=== PATIENT | male | born 1990 | race Hispanic/Latino ===

== ENCOUNTER 2016-09-06 19:39 | Emergency (ER) | payer BC, OTHER ==
[2016-09-06 20:00] VITALS: BP 149/94; PULSE 101; RESP 18; TEMP 97.9; O2SAT 98
[2016-09-06] MEDS ORDERED: Sodium Chloride 0.9% 1,000 ML IV STA (20:22)
--- NOTE | 2016-09-06 20:24 | ED PDOC ---
HPI: Male Pain Time Seen by Provider: 09/06/16 20:15 Chief Complaint (Nursing): Male Genitourinary Chief Complaint (Provider): flank pain History Per: Patient Additional Complaint(s): pt c/o R flank pain radiating to R groin w/ associated hematuria x 2h. denies associated fever, cp, sob, abd pain, n/v/d, testicle pain, rashes. Past Medical History Reviewed: Historical Data, Nursing Documentation, Vital Signs Vital Signs: Last Vital Signs Temp 97.9 F 09/06/16 19:57 Pulse 101 H 09/06/16 19:57 Resp 18 09/06/16 19:57 BP 149/94 H 09/06/16 19:57 Pulse Ox 98 09/06/16 19:57 - Medical History PMH: No Chronic Diseases - Family History Family History: States: No Known Family Hx - Social History Current smoker - smoking cessation education provided: No Alcohol: None Drugs: Denies - Home Medications Home Medications: Ambulatory Orders Medication Instructions Recorded Cefuroxime Axetil [Cefuroxime] 500 mg PO BID #14 tablet 09/06/16 Tamsulosin [Flomax] 0.4 mg PO DAILY #20 cap 09/06/16 oxyCODONE/Acetaminophen [Percocet 1 ea PO Q6 #10 tab 09/06/16 5/325 mg Tab] - Allergies Allergies/Adverse Reactions: Allergies Allergy/AdvReac Type Severity Reaction Status Date / Time No Known Allergies Allergy Verified 09/06/16 19:56 Review of Systems ROS Statement: Except As Marked, All Systems Reviewed And Found Negative Gastrointestinal: Positive for: Abdominal Pain Genitourinary Male: Positive for: Hematuria Musculoskeletal: Positive for: Back Pain Physical Exam - Reviewed Nursing Documentation Reviewed: Yes Vital Signs Reviewed: Yes - Physical Exam Appears: Positive for: Non-toxic, Uncomfortable Skin: Positive for: Normal Color, Warm, DRY Cardiovascular/Chest: Positive for: Regular Rate, Rhythm Respiratory: Positive for: CNT, Normal Breath Sounds Gastrointestinal/Abdominal: Positive for: Normal Exam, Bowel Sounds, Soft. Negative for: Tenderness Back: Positive for: R CVA Tenderness. Negative for: L CVA Tenderness Extremity: Positive for: Normal ROM. Negative for: Tenderness Neurologic/Psych: Positive for: Alert, Oriented. Negative for: Motor/Sensory Deficits - Laboratory Results Result Diagrams: 09/06/16 20:32 09/06/16 21:45 - ECG O2 Sat by Pulse Oximetry: 98 Medical Decision Making Medical Decision Making: cbc, basic normal. urine bloody. ct shows 4.8mm obstructing stone distal R ureter. spoke with Dr. Gloria. pt can have rocephin in ED and ceftin Rx. to f/u in office. pt argrees to plan. Disposition - Clinical Impression Clinical Impression: Renal calculi - Patient ED Disposition Is Patient to be Admitted: No - Disposition Referrals: Dane Gloria MD [Staff Provider] - Disposition: Routine/Home Disposition Time: 23:25 Condition: IMPROVED Prescriptions: Cefuroxime Axetil [Cefuroxime] 500 mg PO BID #14 tablet Tamsulosin [Flomax] 0.4 mg PO DAILY #20 cap oxyCODONE/Acetaminophen [Percocet 5/325 mg Tab] 1 ea PO Q6 #10 tab Instructions: Kidney Stones (ED) Forms: [facility] ED School/Work Excuse
[2016-09-06 20:42] LABS: BASO # 0.1 K/uL (0.0-0.2); BASO % 0.6 % (0.0-2.0); EOS # 0.2 K/uL (0.0-0.7); EOS % 2.4 % (0.0-4.0); HEMATOCRIT 45.2 % (35.0-51.0); LYMPH # 2.9 K/uL (1.0-4.3); LYMPH % 30.2 % (20.0-40.0); MEAN CELL VOLUME 88.4 fl (80.0-94.0); MEAN CORPUSCULAR HEMOGLOBIN 29.8 pg (27.0-31.0); MEAN CORPUSCULAR HGB CONC 33.7 g/dL (33.0-37.0); MEAN PLATELET VOLUME 7.7 fl (7.2-11.7); MONO # 0.6 K/uL (0.0-0.8); MONO % 6.1 % (0.0-10.0); NEUT # 5.7 K/uL (1.8-7.0); NEUT % 60.7 % (50.0-75.0); NRBC % 0.1 % (0.0-0.0); RED CELL DISTRIBUTION WIDTH 12.8 % (11.5-14.5); WHITE BLOOD COUNT 9.5 K/uL (4.8-10.8)
[2016-09-06 20:57] LABS: BLOOD UREA NITROGEN 20 mg/dl (9-20); CARBON DIOXIDE 19 mmol/L (22-30); CHLORIDE 100 mmol/L (98-107); GFR AFRICAN-AMERICAN > 60; GLUCOSE,RANDOM 113 mg/dL (75-110); SODIUM 143 mmol/l (132-148)
[2016-09-06 21:02] LABS: CALCIUM < 1.0 mg/dL (8.4-10.2); POTASSIUM > 14.0 MMOL/L (3.6-5.0)
--- NOTE | 2016-09-06 21:23 | CT ---
EXAM: CT Abdomen and Pelvis Without Intravenous Contrast CLINICAL HISTORY: 26 years old, male; Pain; Abdominal pain; Flank; Right lower quadrant (rlq); Additional info: R flank pain radiating to the right groin with hematuria for 2 hours. Gender: male TECHNIQUE: Axial computed tomography images of the abdomen and pelvis without intravenous contrast. This CT exam was performed using one or more of the following dose reduction techniques: automated exposure control, adjustment of the mA and/or kV according to patient size, and/or use of iterative reconstruction technique. Coronal and sagittal reformatted images were created and reviewed. EXAM DATE/TIME: 09/06/2016 8:17 PM COMPARISON: There are no prior studies for comparison. FINDINGS: Lower thorax: heart size is normal. There is minimal atelectasis at the lung bases ABDOMEN: Liver: unremarkable Gallbladder and bile ducts: unremarkable Pancreas: There is mild fatty infiltration of the pancreas. Spleen: unremarkable Adrenals: unremarkable Kidneys and ureters: There are bilateral nonobstructing renal stones. There is a 9.5 mm right lower pole renal stone. There is a 5.3 mm right lower pole renal stone.There are multiple nonobstructing left renal stones. Largest left stone measures approximately 4.1 mm. There is obstructive uropathy on the right. There is a 4.8 mm right ureteral stone at the S2 segmental level. Ureter distal to this stone is unremarkable. Left kidney and ureter are otherwise unremarkable. Stomach and bowel: Stomach is distended. Rotation is normal. There is no obstruction. Terminal ileum is unremarkable. There is a small amount of radiopaque material in normal caliber appendix. There is mild fatty infiltration of the colon wall. Appendix: See above. PELVIS: Bladder: unremarkable Reproductive: Seminal vesicles and prostate are unremarkable. ABDOMEN and PELVIS: Intraperitoneal space: There is no free air or free fluid. Bones/joints: There are no acute osseous abnormalities. There is minimal spondylosis Soft tissues: There is a small fat-containing umbilical hernia. Vasculature: Vascular structures are unremarkable. Lymph nodes: There is no pathologic adenopathy. IMPRESSION: 4.8 mm obstructing distal right ureteral stone; bilateral nonobstructing renal stones as described above Additional findings as described above.
[2016-09-06 22:21] LABS: BLOOD UREA NITROGEN 20 mg/dl (9-20); CALCIUM 10.1 mg/dL (8.4-10.2); CARBON DIOXIDE 29 mmol/L (22-30); CHLORIDE 102 mmol/L (98-107); GFR AFRICAN-AMERICAN > 60; GLUCOSE,RANDOM 98 mg/dL (75-110); POTASSIUM 4.1 MMOL/L (3.6-5.0); SODIUM 144 mmol/l (132-148)
[2016-09-06] MEDS ORDERED: cefTRIAXone (Rocephin) 1 gm Inj ONE (23:09)
== END 2016-09-06 23:58 | disposition home or self-care (01) ==
LOC: H.ER 19:39
DX: N20.0 Calculus of kidney (principal); R10.9 Unspecified abdominal pain; R31.9 Hematuria, unspecified

== ENCOUNTER 2016-09-09 00:41 | Emergency (ER) | payer OTHER ==
[2016-09-09 00:50] VITALS: RESP 16
--- NOTE | 2016-09-09 01:07 | ED PDOC ---
HPI: Abdomen Time Seen by Provider: 09/09/16 00:52 Chief Complaint (Nursing): Male Genitourinary Chief Complaint (Provider): flank pain History Per: Patient History/Exam Limitations: no limitations Onset/Duration Of Symptoms: Days (3) Pain Scale Rating Of: 10 Location Of Pain/Discomfort: Other (right flank) Quality Of Discomfort: "Pain" Additional History Per: Patient Additional Complaint(s): 26 y/o male presents with right flank pain x 10 hours. Patient was here for same 3 days ago, diagnosed with kidney stone and discharged with Percocet, Flomax, and Ceftin. Patient states he followed up with Urologist Dr. Gloria Wednesday, had KUB and was told he will likely pass stone within one week. Patient states pain was controlled then, but the next day pain became intensified, no improvement with percocet. Denies fever, nausea/vomiting, changes in bowel movements, hematuria, dysuria. Past Medical History Reviewed: Historical Data, Nursing Documentation, Vital Signs Vital Signs: Last Vital Signs Temp 98.8 F 09/09/16 03:53 Pulse 73 09/09/16 03:53 Resp 16 09/09/16 00:47 BP 126/76 09/09/16 03:53 Pulse Ox 98 09/09/16 03:53 - Medical History PMH: Kidney Stones - Surgical History Surgical History: No Surg Hx - Family History Family History: States: Unknown Family Hx - Home Medications Home Medications: Ambulatory Orders Medication Instructions Recorded Cefuroxime Axetil [Cefuroxime] 500 mg PO BID #14 tablet 09/06/16 Tamsulosin [Flomax] 0.4 mg PO DAILY #20 cap 09/06/16 oxyCODONE/Acetaminophen [Percocet 1 ea PO Q6 #10 tab 09/06/16 5/325 mg Tab] Ibuprofen [Motrin Tab] 1 tab PO Q6 PRN #20 tab 09/09/16 oxyCODONE/Acetaminophen [Percocet 1 ea PO Q6 PRN #10 tab 09/09/16 5/325 mg Tab] - Allergies Allergies/Adverse Reactions: Allergies Allergy/AdvReac Type Severity Reaction Status Date / Time No Known Allergies Allergy Verified 09/09/16 00:47 Review of Systems ROS Statement: Except As Marked, All Systems Reviewed And Found Negative Gastrointestinal: Positive for: Abdominal Pain Physical Exam - Reviewed Nursing Documentation Reviewed: Yes Vital Signs Reviewed: Yes - Physical Exam Appears: Positive for: Well, Non-toxic, No Acute Distress Head Exam: Positive for: ATRAUMATIC, NORMAL INSPECTION, NORMOCEPHALIC Skin: Positive for: Normal Color Cardiovascular/Chest: Positive for: Regular Rate, Rhythm Respiratory: Positive for: Normal Breath Sounds Gastrointestinal/Abdominal: Positive for: Bowel Sounds, Soft, Tenderness (right flank, right lower quadrant) Back: Negative for: L CVA Tenderness, R CVA Tenderness Extremity: Positive for: Normal ROM Neurologic/Psych: Positive for: Alert, Oriented - Laboratory Results Result Diagrams: 09/09/16 01:15 09/09/16 01:15 - ECG O2 Sat by Pulse Oximetry: 99 - Progress ED Course And Treament: labs, IV fluids, IV toradol On re-eval, patient states pain improved, now 4/10. Patient and mother are requesting another CT scan. EXAM: CT Abdomen and Pelvis Without Intravenous Contrast CLINICAL HISTORY: 26 years old, male; Pain; Abdominal pain; Flank; Right; Additional info: Right flank pain, h/o ureteral stone TECHNIQUE: Axial computed tomography images of the abdomen and pelvis without intravenous contrast. This CT exam was performed using one or more of the following dose reduction techniques: automated exposure control, adjustment of the mA and/or kV according to patient size, and/ or use of iterative reconstruction technique. Coronal and sagittal reformatted images were created and reviewed. COMPARISON: CT - ABD PELVIS W/O PO OR IV CONT 09/06/2016 8:36:11 PM FINDINGS: Lower thorax: There is minimal bibasilar atelectasis. ABDOMEN: Liver: There are no focal liver lesions present. Gallbladder and bile ducts: The gallbladder is contracted but otherwise normal. No calcified stones. No ductal dilation. Pancreas: Pancreas is slightly fatty replaced. No ductal dilation. Spleen: Spleen is enlarged measuring 14.3 CM anteroposterior. Adrenals: The adrenal glands are normal. Kidneys and ureters: Right kidney demonstrates mild hydronephrosis and hydroureter to the level of the upper pelvis where there is an obstructing 4-5 mm calculus on series 2, image 69. Both kidneys demonstrate multiple nonobstructing renal calculi. Stomach and bowel: The stomach is normal. There is mild colonic constipation. There is no evidence of intestinal obstruction. No mucosal thickening. Appendix: A normal appendix is identified. PELVIS: Bladder: Bladder is decompressed. No stones. Reproductive: The prostate gland and seminal vesicles are normal. ABDOMEN and PELVIS: Intraperitoneal space: There is no evidence of free intraperitoneal fluid. There is no free intraperitoneal air. Bones/joints: No acute fracture. No dislocation. Soft tissues: Unremarkable. Vasculature: The aorta is normal. No abdominal aortic aneurysm. Lymph nodes: There is no evidence of lymphadenopathy. IMPRESSION: Right kidney demonstrates mild hydronephrosis and hydroureter to the level of the upper pelvis where there is an obstructing 4-5 mm calculus on series 2, image 69. Thank you for allowing us to participate in the care of your patient. Patient/mother concerned about being discharged because pain may return. Patient states he has not been taking Ibuprofen with Percocet because he was not instructed to do so. Dr. Stout at bedside, explained to patient importance of ibuprofen with Percocet to be used for breakthrough pain. Patient was offered admission for pain control, but states he would like to try outpatient ibuprofen rx first. Patient is requesting another Percocet rx as he finished his. Due to diagnosis of obstructing renal stone with continued pain, patient will require second Percocet rx. Patient was given rx for ibuprofen and percocet. Patient was advised Percocet is only to be taken for severe pain; educated on potential addiction/dependence/overdose. Patient advised to follow up with Dr. Gloria as previously discussed. Return to ED for worsening/concerning symptoms. Disposition - Clinical Impression Clinical Impression: Renal calculi - Patient ED Disposition Is Patient to be Admitted: No Counseled Patient/Family Regarding: Studies Performed, Diagnosis, Need For Followup, Rx Given - Disposition Disposition: Routine/Home Disposition Time: 03:42 Condition: IMPROVED Prescriptions: Ibuprofen [Motrin Tab] 1 tab PO Q6 PRN #20 tab PRN Reason: Pain, Moderate (4-7) oxyCODONE/Acetaminophen [Percocet 5/325 mg Tab] 1 ea PO Q6 PRN #10 tab PRN Reason: Pain, Severe (8-10) Instructions: Kidney Stones (ED), Renal Colic (ED)
[2016-09-09] MEDS: Sodium Chloride 0.9% 1,000 ML IV STA (01:11)
[2016-09-09 01:21] LABS: RBC URINE 30 /hpf (0-3); URINE BACTERIA RARE (<OCC); URINE BILIRUBIN NEGATIVE (NEGATIVE); URINE BLOOD MODERATE (NEGATIVE); URINE COLOR STRAW (YELLOW); URINE GLUCOSE (UA) NEG (Normal); URINE KETONE NEGATIVE (NEGATIVE); URINE LEUKOCYTE ESTERASE NEG Leu/uL (Negative); URINE PROTEIN NEGATIVE (NEGATIVE); URINE UROBILINOGEN 0.2-1.0 mg/dL (0.2-1.0); WBC URINE < 1 /hpf (0-5)
[2016-09-09 01:26] LABS: BASO # 0.1 K/uL (0.0-0.2); BASO % 0.9 % (0.0-2.0); EOS # 0.3 K/uL (0.0-0.7); EOS % 3.2 % (0.0-4.0); HEMATOCRIT 41.4 % (35.0-51.0); LYMPH % 33.5 % (20.0-40.0); MEAN CELL VOLUME 86.8 fl (80.0-94.0); MEAN CORPUSCULAR HGB CONC 34.6 g/dL (33.0-37.0); MEAN PLATELET VOLUME 7.7 fl (7.2-11.7); MONO # 0.6 K/uL (0.0-0.8); MONO % 7.1 % (0.0-10.0); NEUT # 4.9 K/uL (1.8-7.0); NEUT % 55.3 % (50.0-75.0); RED CELL DISTRIBUTION WIDTH 12.8 % (11.5-14.5); WHITE BLOOD COUNT 8.8 K/uL (4.8-10.8)
[2016-09-09 01:34] LABS: ALB/GLOB RATIO 1.3 (1.0-2.1); ALKALINE PHOSPHATASE 66 U/L (38-126); ALT/SGPT 28 U/L (21-72); AST/SGOT 24 U/L (17-59); BILIRUBIN,TOTAL 0.7 mg/dl (0.2-1.3); BLOOD UREA NITROGEN 12 mg/dl (9-20); CALCIUM 9.5 mg/dL (8.4-10.2); CARBON DIOXIDE 27 mmol/L (22-30); CHLORIDE 101 mmol/L (98-107); GFR AFRICAN-AMERICAN > 60; GLUCOSE,RANDOM 100 mg/dL (75-110); POTASSIUM 3.8 MMOL/L (3.6-5.0); SODIUM 142 mmol/l (132-148); TOTAL PROTEIN 7.4 G/DL (6.3-8.2)
[2016-09-09 03:53] VITALS: BP 126/76; PULSE 73; TEMP 98.8
[2016-09-09 04:13] VITALS: O2SAT 99
--- NOTE | 2016-09-09 10:11 | CT ---
PROCEDURE: CT Abdomen and Pelvis without intravenous contrast HISTORY: right flank pain, h/o ureteral stone COMPARISON: None. TECHNIQUE: Without contrast.. Contrast Dose: Radiation dose: Total exam DLP = 1096 mGy-cm. This CT exam was performed using one or more of the following dose reduction techniques: Automated exposure control, adjustment of the mA and/or kV according to patient size, and/or use of iterative reconstruction technique. FINDINGS: LOWER THORAX: Unremarkable. LIVER: Unremarkable. No gross lesion or ductal dilatation. GALLBLADDER AND BILE DUCTS: Unremarkable. PANCREAS: Unremarkable. No gross lesion or ductal dilatation. SPLEEN: Unremarkable. ADRENALS: Unremarkable. No mass. KIDNEYS AND URETERS: Bilateral nonobstructive nephrolithiasis. Right hydronephrosis and hydroureter with an obstructing 4 millimeter mid ureteral calculus. VASCULATURE: Unremarkable. No aortic aneurysm. BOWEL: Unremarkable. No obstruction. No gross mural thickening. APPENDIX: Unremarkable. Normal appendix. PERITONEUM: Unremarkable. No free fluid. No free air. LYMPH NODES: Unremarkable. No enlarged lymph nodes. BLADDER: Unremarkable. REPRODUCTIVE: Unremarkable. BONES: No acute fracture. OTHER FINDINGS: None. IMPRESSION: Bilateral nonobstructive nephrolithiasis. Right hydronephrosis and hydroureter with an obstructing 4 millimeter mid ureteral calculus.
== END 2016-09-09 03:55 | disposition home or self-care (01) ==
LOC: H.ER 00:41
DX: N20.0 Calculus of kidney (principal); R10.9 Unspecified abdominal pain; N13.2 Hydronephrosis with renal and ureteral calculous obstruction

== ENCOUNTER 2016-09-11 00:09 | Inpatient (IN) | payer OTHER ==
--- NOTE | 2016-09-11 00:47 | ED PDOC ---
HPI: Back Time Seen by Provider: 09/11/16 00:20 Chief Complaint (Nursing): Fever Chief Complaint (Provider): back pain/fever History Per: Patient (26 y/o recent ED visit for right side flank pain and diagnosis of 4mm obstructing stone (09/09/2016). Seen by Dr. Claire and placed on ceftin. Advised to come to ED for fever. Fever noted today. Denies any vomiting. Motrin at 6pm. Ceftin at 10pm. NO prior surgeries.) Past Medical History Reviewed: Historical Data, Nursing Documentation, Vital Signs Vital Signs: Last Vital Signs Temp 102 F H 09/11/16 00:24 Pulse 154 H 09/11/16 00:24 Resp 17 09/11/16 00:24 BP 115/70 09/11/16 00:24 Pulse Ox 97 09/11/16 00:24 - Medical History PMH: Kidney Stones - Family History Family History: States: Unknown Family Hx - Home Medications Home Medications: Ambulatory Orders Medication Instructions Recorded Cefuroxime Axetil [Cefuroxime] 500 mg PO BID #14 tablet 09/06/16 Tamsulosin [Flomax] 0.4 mg PO DAILY #20 cap 09/06/16 Ibuprofen [Motrin Tab] 1 tab PO Q6 PRN #20 tab 09/09/16 oxyCODONE/Acetaminophen [Percocet 1 ea PO Q6 PRN #10 tab 09/09/16 5/325 mg Tab] - Allergies Allergies/Adverse Reactions: Allergies Allergy/AdvReac Type Severity Reaction Status Date / Time No Known Allergies Allergy Verified 09/11/16 00:23 Review of Systems ROS Statement: Except As Marked, All Systems Reviewed And Found Negative Constitutional: Positive for: Fever Musculoskeletal: Positive for: Back Pain Physical Exam - Reviewed Nursing Documentation Reviewed: Yes Vital Signs Reviewed: Yes - Physical Exam Appears: Positive for: Well, Non-toxic, No Acute Distress Head Exam: Positive for: ATRAUMATIC, NORMAL INSPECTION, NORMOCEPHALIC Skin: Positive for: Normal Color, Warm, DRY Eye Exam: Positive for: EOMI, Normal appearance, PERRL ENT: Positive for: Normal ENT Inspection Neck: Positive for: Normal, Painless ROM Cardiovascular/Chest: Positive for: Regular Rate, Rhythm Respiratory: Positive for: CNT, Normal Breath Sounds Gastrointestinal/Abdominal: Positive for: Normal Exam, Bowel Sounds, Soft Back: Positive for: Normal Inspection Extremity: Positive for: Normal ROM Neurologic/Psych: Positive for: Alert, Oriented - Laboratory Results Result Diagrams: 09/11/16 01:18 09/11/16 01:18 - ECG O2 Sat by Pulse Oximetry: 97 - Progress ED Course And Treament: acetaminophen 975mg x 1 dose toradol 15 mg iv x 1 dose zofran 4 mg iv x 1 dose Zosyn 4.5 gm iv x 1 dose d/w Dr. Claire. Will place stent on Wednesday am. Patient to be NPO wednesday. KUB ordered at his request. d/w Jordan Jameson [employer]RATOR Disposition - Clinical Impression Clinical Impression: Pyelonephritis, Renal calculi - Patient ED Disposition Is Patient to be Admitted: Yes - Disposition Disposition Time: 01:29 Condition: FAIR - Pt Status Changed To: Hospital Disposition Of: Inpatient - Admit Certification Admit to Inpatient:: After my assessment, the patient will require hospitalization for at least two midnights. This is because of the severity of symptoms shown, intensity of services needed, and/or the medical risk in this patient being treated as an outpatient.
[2016-09-11] MEDS ORDERED: Piperacillin/Tazobact 4.5 GM in Sodium Chloride 0.9% 100 ML IVPB STA (00:48)
[2016-09-11] MEDS ORDERED: Sodium Chloride 0.9% 1,000 ML IV STA (01:07)
[2016-09-11 01:51] LABS: BASO % 0.2 % (0.0-2.0); EOS # 0.2 K/uL (0.0-0.7); EOS % 1.6 % (0.0-4.0); HEMATOCRIT 40.2 % (35.0-51.0); LYMPH # 1.4 K/uL (1.0-4.3); LYMPH % 10.8 % (20.0-40.0); MEAN CELL VOLUME 87.2 fl (80.0-94.0); MEAN CORPUSCULAR HEMOGLOBIN 30.5 pg (27.0-31.0); MEAN PLATELET VOLUME 8.4 fl (7.2-11.7); MONO # 0.8 K/uL (0.0-0.8); MONO % 6.4 % (0.0-10.0); NEUT # 10.7 K/uL (1.8-7.0); RED CELL DISTRIBUTION WIDTH 12.7 % (11.5-14.5); WHITE BLOOD COUNT 13.2 K/uL (4.8-10.8)
[2016-09-11 02:01] LABS: ALB/GLOB RATIO 1.3 (1.0-2.1); ALKALINE PHOSPHATASE 73 U/L (38-126); ALT/SGPT 34 U/L (21-72); AST/SGOT 24 U/L (17-59); BILIRUBIN,TOTAL 0.6 mg/dl (0.2-1.3); BLOOD UREA NITROGEN 12 mg/dl (9-20); CALCIUM 9.3 mg/dL (8.4-10.2); CARBON DIOXIDE 25 mmol/L (22-30); CHLORIDE 102 mmol/L (98-107); GFR AFRICAN-AMERICAN > 60; GLUCOSE,RANDOM 109 mg/dL (75-110); PARTIAL THROMBOPLASTIN TIME 27.3 SECONDS (23.3-32.5); POTASSIUM 3.9 MMOL/L (3.6-5.0); SODIUM 140 mmol/l (132-148)
[2016-09-11 02:03] LABS: RBC URINE 7 /hpf (0-3); URINE BILIRUBIN NEGATIVE (NEGATIVE); URINE BLOOD MODERATE (NEGATIVE); URINE COLOR STRAW (YELLOW); URINE GLUCOSE (UA) NEG (Normal); URINE KETONE NEGATIVE (NEGATIVE); URINE LEUKOCYTE ESTERASE NEG Leu/uL (Negative); URINE PROTEIN NEGATIVE (NEGATIVE); URINE UROBILINOGEN 0.2-1.0 mg/dL (0.2-1.0); WBC URINE 1 /hpf (0-5)
[2016-09-11] MEDS: Sodium Chloride 0.9% 1,000 ML IV SCH ×2 (06:38→20:36)
[2016-09-11] MEDS: Piperacillin/Tazobact 3.375 GM in Sodium Chloride 0.9% 100 ML IVPB SCH ×3 (09:23→21:02)
--- NOTE | 2016-09-11 13:08 | RAD ---
HISTORY: KIDNEY STONE COMPARISON: 09/07/2016 FINDINGS: There is redemonstration of calcifications overlying bilateral renal silhouette, the largest in the right lower pole measures 10 mm. BOWEL: Normal. No obstruction. No free air. BONES: Normal. OTHER FINDINGS: None. IMPRESSION: Bilateral nephrolithiasis, the largest stone in the right lower pole measures 10 mm. No significant interval change.
[2016-09-11] MEDS ORDERED: Iohexol 240 200 ML IJ ONE (13:43)
[2016-09-11] MEDS ORDERED: Succinylcholine 200 mg/10 ml Inj IV ONE (13:51)
[2016-09-11] MEDS ORDERED: Midazolam 2 MG/2 ML VIAL ONE (13:51)
[2016-09-11] MEDS ORDERED: Propofol 10 mg/ml Inj (20 ML) ONE (13:51)
[2016-09-11] MEDS ORDERED: Sodium Chloride 0.9% 1,000 ML IV ONE (14:05)
--- NOTE | 2016-09-11 14:22 | CP.PCM.HP ---
History of Present Illness - History of Present Illness History of Present Illness: pt admitted for r sided abd pain and fever has 4.9mm r sided nephrolithiasis w/ hydronpehrosis. sent by dr [facility]is for admission, iv anbx and stent. painc ontrolled at [facility] and imagin noted. no med hx, surg hx of r h ortho surg. Present on Admission - Present on Admission Any Indicators Present on Admission: No Review of Systems - Constitutional Constitutional: As Per HPI, Fever - Gastrointestinal Gastrointestinal: As Per HPI - Genitourinary Genitourinary: As Per HPI, Flank Pain Past Patient History - Past Medical History & Family History Past Medical History?: No - Past Social History Smoking Status: Never Smoked - RENAL Hx Kidney Stones: Yes - HEMATOLOGICAL/ONCOLOGICAL Hx AIDS: No Hx Human Immunodeficiency Virus (HIV): No - MUSCULOSKELETAL/RHEUMATOLOGICAL Hx Falls: No - GENITOURINARY/GYNECOLOGICAL Hx Prostate Problems: No - PSYCHIATRIC Hx Psychophysiologic Disorder: No - SURGICAL HISTORY Hx Surgeries: Yes Other/Comment: Rt hand surgery. Pilonoidal cyst removed - ANESTHESIA Hx Anesthesia: Yes Hx Anesthesia Reactions: No Meds Allergies/Adverse Reactions: Allergies Allergy/AdvReac Type Severity Reaction Status Date / Time No Known Allergies Allergy Verified 09/11/16 00:23 Physical Exam - Constitutional Appears: Well, Non-toxic, No Acute Distress - Head Exam Head Exam: ATRAUMATIC, NORMAL INSPECTION, NORMOCEPHALIC - Eye Exam Eye Exam: EOMI, Normal appearance, PERRL Pupil Exam: NORMAL ACCOMODATION, PERRL - ENT Exam ENT Exam: Mucous Membranes Moist, Normal Exam - Neck Exam Neck exam: Positive for: Normal Inspection - Respiratory Exam Respiratory Exam: Clear to Auscultation Bilateral, NORMAL BREATHING PATTERN - Cardiovascular Exam Cardiovascular Exam: REGULAR RHYTHM, RRR, +S1, +S2 - GI/Abdominal Exam GI & Abdominal Exam: Normal Bowel Sounds, Soft, Tenderness Additional comments: r abd/flank - Extremities Exam Extremities exam: Positive for: full ROM, normal capillary refill, normal inspection, pedal pulses present - Back Exam Back exam: FULL ROM, NORMAL INSPECTION - Neurological Exam Neurological exam: Alert, CN II-XII Intact, Normal Gait, Oriented x3, Reflexes Normal - Psychiatric Exam Psychiatric exam: Normal Affect, Normal Mood - Skin Skin Exam: Dry, Intact, Normal Color, Warm Results - Vital Signs Recent Vital Signs: Last Vital Signs Temp 99.4 F 09/11/16 09:00 Pulse 88 09/11/16 09:00 Resp 16 09/11/16 09:00 BP 117/74 09/11/16 09:00 Pulse Ox 96 09/11/16 09:00 - Labs Result Diagrams: 09/11/16 01:18 09/11/16 01:18 Assessment & Plan (1) Renal calculi Assessment and Plan: zosyn, for stent w/ uro pain control Status: Acute (2) Fever Assessment and Plan: tylenol prn f/u c/s Status: Acute (3) DVT prophylaxis Assessment and Plan: scd nad aehose ambulation Status: Acute Decision To Admit - Pt Status Changed To: Hospital Disposition Of: Inpatient - Admit Certification Admit to Inpatient:: After my assessment, the patient will require hospitalization for at least two midnights. This is because of the severity of symptoms shown, intensity of services needed, and/or the medical risk in this patient being treated as an outpatient. - . Bed Request Type: Med/Surg Admitting Physician: Jessica Pedro
[2016-09-11] MEDS ORDERED: Lactated Ringer's 1,000 ML IV ONE (14:25)
[2016-09-11] MEDS ORDERED: Phenylephrine 10 mg/ml Inj ONE (14:36)
[2016-09-11] MEDS ORDERED: HYDROmorphone 0.5 mg/0.5 ml ISec IVP PRN (15:14)
--- NOTE | 2016-09-11 16:00 | CON ---
DATE: 09/11/2016 DIAGNOSES: Distal right ureterolithiasis with urosepsis. BRIEF HISTORY: The patient is a 26-year-old white male with his first episode of kidney stones who o riginally presented to [facility] ER on 09/06/2016 with severe right renal colic where an abdominal pelvic CT stone survey done showed a 4.8 mm distal right ureteral stone at the S2 segment level. The patient's pain was controlled completely in the ER and the patient was discharge d home on Ceftin 500 mg twice a day and Flomax 0.4 mg daily and Percocet 5/325 mg q. 4 h on a when ne cessary basis for pain control. The patient did well originally and then very early this a.m., the p atient called with a history of spiking a temperature to 102 on Ceftin and eventually went back to [facility] Emergency Room where he was admitted for IV antibiotics and definitiv e treatment of his distal right ureteral stone. The patient's temperature at 9:00 a.m. today, 017, was 99.4, down from 102 on IV Zosyn. Currently, his pain is moderately controlled, but still he had some right renal colic and distal right lower abdominal pain. He has no significant past medica l history. PAST SURGICAL HISTORY: Surgery for a fracture of the right hand and removal of a pilonidal cyst. SOCIAL HISTORY: He has no history of any tobacco use and only a social drinker. ALLERGIES: He has no known allergies to any medications. PHYSICAL EXAMINATION: VITAL SIGNS: Today, temperature is 99.4, pulse is 88, blood pressure is 117/74 and respiration rate is 16 and O2 sat on room air is 96%. HEENT: Grossly within normal limits. NECK: Supple. Thyroid not palpable. ABDOMEN: Soft, not distended or tender. No left CVA tenderness, 1+ to 2+ right CVA tenderness on pa in med control. GENITALIA: He is circumcised with a normal glans, meatus. No hydrocele or varicoceles palpated. No testicular masses and testes are descended bilaterally and are normal. Urethral meatus is normal wi thout any rashes or lesions visualized. No penile plaques. RECTAL: Previous in the office was a normal rectal exam. LABORATORY EVALUATION: Today, 09/11/2016, shows a CBC with a WBC count of 13.2, hemoglobin of 14.1 an d hematocrit of 40.2. Platelet count is 219,000. PT, PTT shows a PT of 10.7, INR of 1.03 and a PTT of 27.3. Sodium is 140, potassium 3.9, chloride 102, CO2 25, BUN and creatinine of 12 and 1.0, respe ctively with a GFR of greater than 60. Random glucose was 109. Lactic acid was 1.6, calcium 9.3. T otal bilirubin 0.6, AST 24, ALT 34, alk phosphatase 73. Urinalysis was straw colored, clarity was cl ear, pH was 6.0, specific gravity 1.012, protein negative, glucose negative. Ketones, nitrite and bi lirubin all negative. Blood was moderate. Urobilinogen was 0.2-1.0 and leukocyte esterase was negat jonel. There were 7 RBCs and only 1 WBC per high power field. DIAGNOSTIC IMPRESSION: Distal right ureteral stone measuring 4.[address] PLAN: To schedule the patient for definitive cystoscopy with right ureteroscopic laser lithotripsy a nd insertion of right ureteral stent. Dane Gloria MD cc: [id number] TT: 09/11/2016 16:00:27 Confirmation # [id number] Dictation # [id number] tn
--- NOTE | 2016-09-11 17:47 | CP.PCM.CON ---
History of Present Illness - History of Present Illness History of Present Illness: I was asked to see pateitn by Jordan Jameson APN and Dr. Pedro. Patient is a 26 year old male with a history of renal calculi who presents with premature ventricular complexes. Patient was undergoing a urological procedure when he was found to have evidence of PVCs. The patient was admitted for further evaluation. The patietn states he has noted intermittent palpitations in the past. The patient denies chest pain or dyspnea. Review of Systems - Constitutional Constitutional: absent: As Per HPI, Anorexia, Chills, Daytime Sleepiness, Excessive Sweating, Fatigue, Fever, Frequent Falls, Headache, Increased Appetite , Lethargy, Malaise, Night Sweats, Snoring, Sleep Apnea, Weight Gain, Weight Loss, Weakness, Other - EENT Eyes: absent: As Per HPI, Blind Spots, Blurred Vision, Change in Vision, Decreased Night Vision, Diplopia, Discharge, Dry Eye, Exophthalmos, Floaters, Irritation, Itchy Eyes, Loss of Peripheral Vision, Pain, Photophobia, Requires Corrective Lenses, Sees Flashes, Spots in Vision, Tunnel Vision, Other Visual Disturbances, Loss of Vision, Other Ears: absent: As Per HPI, Decreased Hearing, Ear Discharge, Ear Pain, Tinnitus, Abnormal Hearing, Disequilibrium, Dizziness, Other Nose/Mouth/Throat: absent: As Per HPI, Epistaxis, Nasal Congestion, Nasal Discharge, Nasal Obstruction, Nasal Trauma, Nose Pain, Post Nasal Drip, Sinus Pain, Sinus Pressure, Bleeding Gums, Change in Voice, Dental Pain, Dry Mouth, Dysphagia, Halitosis, Hoarsness, Lip Swelling, Mouth Lesions, Mouth Pain, Odynophagia, Sore Throat, Throat Swelling, Tongue Swelling, Facial Pain, Neck Pain, Neck Mass, Other - Cardiovascular Cardiovascular: Palpitations - Respiratory Respiratory: absent: As Per HPI, Cough, Dyspnea, Hemoptysis, Dyspnea on Exertion , Wheezing, Snoring, Stridor, Pain on Inspiration, Chest Congestion, Excessive Mucous Production, Change in Mucous Color, Pain with Coughing, Other - Gastrointestinal Gastrointestinal: absent: As Per HPI, Abdominal Pain, Belching, Bloating, Change in Bowel Habits, Change in Stool Character, Coffee Ground Emesis, Constipation, Cramping, Diarrhea, Dyspepsia, Dysphagia, Early Satiety, Excessive Flatus, Fecal Incontinence, Heartburn, Hematemesis, Hematochezia, Loose Stools, Melena, Nausea, Odynophagia, Temesmus, Vomiting, Other - Genitourinary Genitourinary: Hx Renal/Bladder Calculi - Musculoskeletal Musculoskeletal: absent: As Per HPI, Abnormal Gait, Arthralgias, Atrophy, Back Pain, Deformity, Joint Swelling, Limited Range of Motion, Loss of Height, Muscle Cramps, Muscle Weakness, Myalgias, Neck Pain, Numbness, Radiating Pain into Limb, Stiffness, Tingling, Other - Integumentary Integumentary: absent: As Per HPI, Acne, Alopecia, Bleeding Lesions, Change in Hair, Change in Nails, Change in Pigmentation, Changing Lesions, Dry Skin, Erythema, Furuncle, Hirsutism, Lesions, New Lesions, Non-Healing Lesions, Photosensitivity, Pruritus, Rash, Skin Pain, Skin Ulcer, Sores, Striae, Swelling , Unusual Bruising, Wounds, Jaundice, Other - Neurological Neurological: absent: As Per HPI, Abnormal Gait, Abnormal Hearing, Abnormal Movements, Abnormal Speech, Behavioral Changes, Burning Sensations, Confusion, Convulsions, Disequilibrium, Dizziness, Numbness, Focal Weakness, Frequent Falls , Headaches, Lack of Coordination, Loss of Vision, Memory Loss, Paresthesias, Radicular Pain, Restless Legs, Sensory Deficit, Syncope, Tingling, Tremor, Vertigo, Weakness, Other Visual Disturbances, Other - Psychiatric Psychiatric: absent: As Per HPI, Abnormal Sleep Pattern, Anhedonia, Anxiety, Auditory Hallucinations, Behavioral Changes, Change in Appetite, Change in Libido, Confusion, Depression, Difficulty Concentrating, Hallucinations, Homicidal Ideation, Hopelessness, Irritability, Memory Loss, Mood Swings, Panic Attacks, Paranoia, Suicidal Ideation, Visual Hallucinations, Tactile Hallucinations, Other - Endocrine Endocrine: absent: As Per HPI, Change in Body Appearance, Change in Libido, Cold Intolorance, Deepening of Voice, Excessive Sweating, Fatigue, Flushing, Heat Intolorance, Increase in Ring/Shoe/Hat Size, Palpitations, Polydipsia, Polyphagia, Polyuria, Other - Hematologic/Lymphatic Hematologic: absent: As Per HPI, Easy Bleeding, Easy Bruising, Lymphadenopathy, Other Past Patient History - Past Medical History & Family History Past Medical History?: No - Past Social History Smoking Status: Never Smoked - RENAL Hx Kidney Stones: Yes - HEMATOLOGICAL/ONCOLOGICAL Hx AIDS: No Hx Human Immunodeficiency Virus (HIV): No - MUSCULOSKELETAL/RHEUMATOLOGICAL Hx Falls: No - GENITOURINARY/GYNECOLOGICAL Hx Prostate Problems: No - PSYCHIATRIC Hx Psychophysiologic Disorder: No - SURGICAL HISTORY Hx Surgeries: Yes Other/Comment: Rt hand surgery. Pilonoidal cyst removed - ANESTHESIA Hx Anesthesia: Yes Hx Anesthesia Reactions: No Meds Home Medications: Home Medication List Medication Instructions Recorded Confirmed Type Amoxicillin/Clavulanate [Augmentin 1 tab PO BID #28 tab 09/12/16 Rx 875 MG-125 MG] Ketorolac Tromethamine [Toradol] 10 mg PO Q6 PRN #20 tab 09/12/16 Rx Phenazopyridine [Pyridium] 200 mg PO TID #6 tab 09/12/16 Rx Allergies/Adverse Reactions: Allergies Allergy/AdvReac Type Severity Reaction Status Date / Time No Known Allergies Allergy Verified 09/11/16 00:23 - Medications Medications: Current Medications Acetaminophen (Tylenol 325mg Tab) 650 mg PO Q4 PRN PRN Reason: Fever >100.4 F Sodium Chloride (Sodium Chloride 0.9%) 1,000 mls @ 125 mls/hr IV .Q8H [facility] Stop: 09/12/16 06:16 Last Admin: 09/11/16 06:38 Dose: 125 mls/hr Piperacillin Sod/Tazobactam (Sod 3.375 gm/ Sodium Chloride) 100 mls @ 100 mls/ hr IVPB Q6 [facility] Last Admin: 09/11/16 17:27 Dose: 100 mls/hr Ibuprofen (Motrin Tab) 600 mg PO Q6 PRN PRN Reason: Pain, moderate (4-7) Oxycodone/Acetaminophen (Percocet 5/325 Mg Tab) 1 tab PO Q6 PRN PRN Reason: Pain, severe (8-10) Stop: 09/14/16 06:10 Phenazopyridine HCl (Pyridium) 200 mg PO TID [facility] Last Admin: 09/11/16 15:48 Dose: 200 mg Tamsulosin HCl (Flomax) 0.4 mg PO DAILY@1700 [facility] Last Admin: 09/11/16 17:27 Dose: 0.4 mg Physical Exam - Constitutional Appears: Non-toxic - Head Exam Head Exam: NORMAL INSPECTION - Eye Exam Eye Exam: Normal appearance - ENT Exam ENT Exam: Mucous Membranes Moist - Neck Exam Neck exam: Positive for: Full Rom - Respiratory Exam Respiratory Exam: NORMAL BREATHING PATTERN - Cardiovascular Exam Cardiovascular Exam: REGULAR RHYTHM - GI/Abdominal Exam GI & Abdominal Exam: Normal Bowel Sounds - Rectal Exam Rectal Exam: Deferred - Extremities Exam Extremities exam: Negative for: pedal edema - Back Exam Back exam: NORMAL INSPECTION - Neurological Exam Neurological exam: Alert, Oriented x3 - Psychiatric Exam Psychiatric exam: Normal Affect - Skin Skin Exam: Normal Color Results - Vital Signs Recent Vital Signs: Last Vital Signs Temp 98.6 F 09/11/16 16:35 Pulse 117 H 09/11/16 16:35 Resp 20 09/11/16 16:35 BP 134/77 09/11/16 16:35 Pulse Ox 100 09/11/16 16:35 - Labs Result Diagrams: 09/12/16 05:57 09/12/16 05:57 - EKG Data EKG Interpreted by: Myself EKG shows normal: Sinus rhythm Assessment & Plan (1) Premature ventricular contractions Assessment and Plan: noted on telemetry. will assessLV function. recommend betablocker therapy. Status: Acute (2) Palpitations Assessment and Plan: may have arrhtyhmia as a cause. will monitor on telemetry Status: Acute
--- NOTE | 2016-09-11 18:03 | OP ---
PROCEDURE DATE: 09/11/2016 PREOPERATIVE DIAGNOSES: Distal right ureterolithiasis, 4.8 mm stone. PROCEDURE: Cystoscopy, right ureteroscopy, and insertion of right ureteral multilength stent. SURGEON: Dr. Gloria. ANESTHESIA: Laryngeal mask anesthesia with Dr. Boss . PROCEDURE: The patient was placed on the cystoscopy table in the dorsal lithotomy position and prepped and draped in sterile fashion with Betadine solution under laryngeal mask anesthesia. Next, a #21 Afghan Olympus cystoscope was inserted into the penile meatus and advanced into the bladder under direct vision using the 30-degree lens. Normal saline was used as irrigating solution throughout the entire procedure. The bladder was examined in all 4 quadrants. There were no foreign bodies or suspicious lesions seen in the bladder. The bladder mucosa appeared to be relatively smooth with minimal trabeculation. Posterior urethra and prostatic fossa showed minimally occlusive lateral lobe prostatic hypertrophy with a total prostatic length of about 3 cm and a bladder neck to veru measurement of about 2.5 cm. Next, using a microvasive 150 cm 0.035 inch sensor wire, the sensor wire was passed into the right ureteral orifice and up to the area of the right renal pelvis under direct vision and fluoroscopic control. Immediately after placing the sensor wire, purulent exudate was seen coming from the right ureteral orifice. Next, using a short semi-rigid ureteroscope, the ureteroscope was passed into the right ureteral orifice with the 2nd sensor wire, the original sensor wire was a safety wire and was draped to the abdomen. Using a second sensor wire, which was also passed up to the area of the right renal pelvis, the ureteroscope was attempted to pass to the level of the stone, but this could not be achieved secondary to some inflammatory tissue causing resistance of passage of the ureteroscope and also the patient developed continuous PVCs during the procedure , which did not stop. At this point in time, it was decided to stop the procedure and the ureteroscope was removed and the original safety sensor wire was then back fed through the original cystoscope and the cystoscope was passed back into the bladder over the safety wire towards the right ureteral orifice. Using a microvasive Percuflex VL stent, 6-Afghan multilength, this was passed over the sensor wire and into the area of the right ureteral orifice and under direct vision and fluoroscopic control was passed up the area of the right renal pelvis and with at least 2 coils seen in the right renal pelvis and the end of the stent seen in the bladder, the sensor wire was removed and at least 2 coils were then seen in the bladder. Again, after placement of the stent, more of purulent material was seen coming from the right ureteral orifice. At the end of the procedure, fluoroscopy showed perfect position of the right ureteral stent with 2 coils in the right renal pelvis and 2 coils in the bladder. The patient tolerated the procedure relatively well except for the PVCs developed during the procedure, with approximately 15 mL of blood loss during the procedure. Plan for this patient will be to check on a KUB to see if the stone could be visualized on KUB and the patient may be a candidate for a distal right ureteral ESWL to be done at [facility] [place] or followup ureteroscopy with laser lithotripsy after a complete cardiac workup to analyze his PVCs developed during the procedure and also the patient had an irregular heart rhythm in the Emergency Room when he was septic with a temperature of 102 during this admission. Dane Gloria MD cc: Jessica Pedro MD [id number] TT: 09/11/2016 18:02:52 jn SHERRIE
[2016-09-11] MEDS: Oxycodone/Acetaminophen 5/325 mg Tab PO PRN (20:40)
[2016-09-12] MEDS: Oxycodone/Acetaminophen 5/325 mg Tab PO PRN (02:25)
[2016-09-12] MEDS: Piperacillin/Tazobact 3.375 GM in Sodium Chloride 0.9% 100 ML IVPB SCH ×2 (03:00→10:10)
[2016-09-12 06:26] LABS: BASO % 0.3 % (0.0-2.0); EOS # 0.2 K/uL (0.0-0.7); EOS % 1.6 % (0.0-4.0); HEMATOCRIT 35.8 % (35.0-51.0); LYMPH # 1.7 K/uL (1.0-4.3); LYMPH % 13.4 % (20.0-40.0); MEAN CORPUSCULAR HEMOGLOBIN 29.9 pg (27.0-31.0); MEAN CORPUSCULAR HGB CONC 34.4 g/dL (33.0-37.0); MONO # 0.8 K/uL (0.0-0.8); NEUT # 9.9 K/uL (1.8-7.0); NEUT % 78.7 % (50.0-75.0); RED CELL DISTRIBUTION WIDTH 12.8 % (11.5-14.5); WHITE BLOOD COUNT 12.6 K/uL (4.8-10.8)
[2016-09-12 06:39] LABS: ALB/GLOB RATIO 1.1 (1.0-2.1); ALKALINE PHOSPHATASE 57 U/L (38-126); ALT/SGPT 31 U/L (21-72); AST/SGOT 35 U/L (17-59); BILIRUBIN,TOTAL 0.7 mg/dl (0.2-1.3); BLOOD UREA NITROGEN 10 mg/dl (9-20); CALCIUM 7.8 mg/dL (8.4-10.2); CARBON DIOXIDE 24 mmol/L (22-30); CHLORIDE 105 mmol/L (98-107); GFR AFRICAN-AMERICAN > 60; GLUCOSE,RANDOM 121 mg/dL (75-110); POTASSIUM 3.5 MMOL/L (3.6-5.0); SODIUM 140 mmol/l (132-148)
--- NOTE | 2016-09-12 08:07 | CP.PCM.PN ---
Subjective - Date & Time of Evaluation Date of Evaluation: 09/12/16 Time of Evaluation: 08:07 - Subjective Subjective: dictated note [id number] k 3.5-kdur 20meq po echo today cleard by uro after stent placeyest for dc w/ po anbx felix monitor closely Objective - Vital Signs/Intake and Output Vital Signs (last 24 hours): Temp Pulse Resp BP Pulse Ox 98.7 F 99 H 20 121/79 98 09/12/16 05:07 09/12/16 05:07 09/12/16 05:07 09/12/16 05:07 09/12/16 05:07 Intake and Output: 09/12/16 09/12/16 06:59 18:59 Intake Total 1060 Output Total 325 Balance 735 - Medications Medications: Current Medications Acetaminophen (Tylenol 325mg Tab) 650 mg PO Q4 PRN PRN Reason: Fever >100.4 F Piperacillin Sod/Tazobactam (Sod 3.375 gm/ Sodium Chloride) 100 mls @ 100 mls/ hr IVPB Q6 [facility] Last Admin: 09/12/16 03:00 Dose: 100 mls/hr Ibuprofen (Motrin Tab) 600 mg PO Q6 PRN PRN Reason: Pain, moderate (4-7) Oxycodone/Acetaminophen (Percocet 5/325 Mg Tab) 1 tab PO Q6 PRN PRN Reason: Pain, severe (8-10) Stop: 09/14/16 06:10 Last Admin: 09/12/16 02:25 Dose: 1 tab Phenazopyridine HCl (Pyridium) 200 mg PO TID [facility] Last Admin: 09/11/16 15:48 Dose: 200 mg Tamsulosin HCl (Flomax) 0.4 mg PO DAILY@1700 [facility] Last Admin: 09/11/16 17:27 Dose: 0.4 mg - Labs Labs: 09/12/16 05:57 09/12/16 05:57 PT 10.7 SECONDS (9.6-11.2) 09/11/16 01:18 INR 1.03 (0.92-1.08) 09/11/16 01:18 APTT 27.3 SECONDS (23.3-32.5) 09/11/16 01:18 Assessment and Plan (1) Renal calculi Status: Acute (2) Fever Status: Acute (3) DVT prophylaxis Status: Acute
[2016-09-12] MEDS ORDERED: Potassium Chloride 20 mEq ER Tab PO ONE (08:08)
[2016-09-12] MEDS ORDERED: Sodium Chloride 0.9% 1,000 ML IV SCH (08:15)
--- NOTE | 2016-09-12 08:20 | PN ---
DATE: 09/12/2016 Seen on telemetry. pt is doing well. The patient had palpitations and PVCs during his urinary stents, was not able to do lithotropsy elated to multiple PVCs noted on monitor. Denies any complaints at this time. Pain is controlled per RN. The patient was initially in sinus tachycardia, after pain meds sinus rhythm without any PVCs noted overnight. No chills, nausea, vomiting, diarrhea. A.M. labs are pending. The patient was cleared for discharge on oral antibiotics by urologist. Cardiology note is appreciated and we are pending a.m. EKG and echo prior to discharge. Further urological procedures are on hold pending results of the cardiology workup. REVIEW OF SYSTEMS: Complains of flank pain, burning with urination. no palpitations since the stent placement. PHYSICAL EXAMINATION: GENERAL: Alert and oriented. HEART: Regular rate and rhythm. No murmurs, rubs, or gallops. LUNGS: Clear in all sol bilaterally. ABDOMEN: Soft, nontender at this time. Bowel sounds x 4. EXTREMITIES: Distal pulses, motor sensation intact. Cap refill is brisk. DIAGNOSES AND PLAN: 1. Nephrolithiasis with hydronephrosis. Continue antibiotics, IV fluids, pain control. Urology consult. Outpatient [id number] followup. We will continue to follow. 2. Premature ventricular contractions. Cardiology, a.m. EKG and echo 3. Deep venous thrombosis prophylaxis. Sequential compression devices and anti -embolism hose. possible discharge the patient later on in the day. Jordan GALVEZ cc: [id number] TT: 09/12/2016 08:20:16 Confirmation # [id number] Dictation # [id number] michael MTDD
[2016-09-12 08:31] VITALS: RESP 18
--- NOTE | 2016-09-12 09:54 | CP.PCM.PN ---
Subjective - Date & Time of Evaluation Date of Evaluation: 09/12/16 Time of Evaluation: 09:50 - Subjective Subjective: patient has no current chest pain. denies current palpitations. Objective - Vital Signs/Intake and Output Vital Signs (last 24 hours): Temp Pulse Resp BP Pulse Ox 98.1 F 93 H 18 132/82 98 09/12/16 08:00 09/12/16 08:00 09/12/16 08:00 09/12/16 08:00 09/12/16 08:00 Intake and Output: 09/12/16 09/12/16 06:59 18:59 Intake Total 1060 Output Total 325 Balance 735 - Medications Medications: Current Medications Acetaminophen (Tylenol 325mg Tab) 650 mg PO Q4 PRN PRN Reason: Fever >100.4 F Piperacillin Sod/Tazobactam (Sod 3.375 gm/ Sodium Chloride) 100 mls @ 100 mls/ hr IVPB Q6 [facility] Last Admin: 09/12/16 03:00 Dose: 100 mls/hr Sodium Chloride (Sodium Chloride 0.9%) 1,000 mls @ 150 mls/hr IV .Q6H40M [facility] Stop: 09/13/16 08:16 Ibuprofen (Motrin Tab) 600 mg PO Q6 PRN PRN Reason: Pain, moderate (4-7) Oxycodone/Acetaminophen (Percocet 5/325 Mg Tab) 1 tab PO Q6 PRN PRN Reason: Pain, severe (8-10) Stop: 09/14/16 06:10 Last Admin: 09/12/16 02:25 Dose: 1 tab Phenazopyridine HCl (Pyridium) 200 mg PO TID [facility] Last Admin: 09/11/16 15:48 Dose: 200 mg Tamsulosin HCl (Flomax) 0.4 mg PO DAILY@1700 [facility] Last Admin: 09/11/16 17:27 Dose: 0.4 mg - Labs Labs: 09/12/16 05:57 09/12/16 05:57 PT 10.7 SECONDS (9.6-11.2) 09/11/16 01:18 INR 1.03 (0.92-1.08) 09/11/16 01:18 APTT 27.3 SECONDS (23.3-32.5) 09/11/16 01:18 - Constitutional Appears: Non-toxic - Head Exam Head Exam: NORMAL INSPECTION - Eye Exam Eye Exam: Normal appearance - ENT Exam ENT Exam: Mucous Membranes Moist - Neck Exam Neck Exam: Full ROM - Respiratory Exam Respiratory Exam: NORMAL BREATHING PATTERN - Cardiovascular Exam Cardiovascular Exam: REGULAR RHYTHM - GI/Abdominal Exam GI & Abdominal Exam: Normal Bowel Sounds - Rectal Exam Rectal Exam: Deferred - Extremities Exam Extremities Exam: Full ROM - Back Exam Back Exam: NORMAL INSPECTION - Neurological Exam Neurological Exam: Alert - Psychiatric Exam Psychiatric exam: Normal Affect - Skin Skin Exam: Normal Color Assessment and Plan (1) Palpitations Assessment & Plan: outpatient holter monitor. Status: Acute (2) Premature ventricular contractions Assessment & Plan: normal left ventricular function by echocardiogram. stable for discharge. Status: Acute
--- NOTE | 2016-09-12 11:30 | RAD ---
PROCEDURE: Fluoroscopy up to 1 hr. HISTORY: CYSTO: RIGHT URETERAL STENT PLACEMENT COMPARISON: None TECHNIQUE: Standard protocol for this study/examination. FINDINGS: Submitted images from the current procedure: 17.0. Confirmation of placement of right double-J stent at the conclusion of the study IMPRESSION: Less than 1 hr fluoroscopic time utilized during performance of the procedure.
[2016-09-12 12:50] VITALS: BP 126/83; PULSE 96; TEMP 98.7; O2SAT 97
--- NOTE | 2016-09-12 13:54 | CP.PCM.DIS ---
Provider - Provider Date of Admission: 09/11/16 01:29 Attending physician: Jessica Pedro MD Time Spent in preparation of Discharge (in minutes): 15 Diagnosis - Discharge Diagnosis (1) Renal calculi Status: Acute (2) Fever Status: Acute (3) DVT prophylaxis Status: Acute Hospital Course - Lab Results Lab Results: Most Recent Lab Values WBC 12.6 K/uL (4.8-10.8) H 09/12/16 05:57 RBC 4.12 Mil/uL (4.40-5.90) L 09/12/16 05:57 Hgb 12.3 g/dL (12.0-18.0) 09/12/16 05:57 Hct 35.8 % (35.0-51.0) 09/12/16 05:57 MCV 87.0 fl (80.0-94.0) 09/12/16 05:57 MCH 29.9 pg (27.0-31.0) 09/12/16 05:57 MCHC 34.4 g/dL (33.0-37.0) 09/12/16 05:57 RDW 12.8 % (11.5-14.5) 09/12/16 05:57 Plt Count 169 K/uL (130-400) 09/12/16 05:57 MPV 8.0 fl (7.2-11.7) 09/12/16 05:57 Neut % (Auto) 78.7 % (50.0-75.0) H 09/12/16 05:57 Lymph % (Auto) 13.4 % (20.0-40.0) L 09/12/16 05:57 [place] % (Auto) 6.0 % (0.0-10.0) 09/12/16 05:57 Eos % (Auto) 1.6 % (0.0-4.0) 09/12/16 05:57 Baso % (Auto) 0.3 % (0.0-2.0) 09/12/16 05:57 Neut # 9.9 K/uL (1.8-7.0) H 09/12/16 05:57 Lymph # 1.7 K/uL (1.0-4.3) 09/12/16 05:57 [place] # 0.8 K/uL (0.0-0.8) 09/12/16 05:57 Eos # 0.2 K/uL (0.0-0.7) 09/12/16 05:57 Baso # 0.0 K/uL (0.0-0.2) 09/12/16 05:57 PT 10.7 SECONDS (9.6-11.2) 09/11/16 01:18 INR 1.03 (0.92-1.08) 09/11/16 01:18 APTT 27.3 SECONDS (23.3-32.5) 09/11/16 01:18 Sodium 140 mmol/l (132-148) 09/12/16 05:57 Potassium 3.5 MMOL/L (3.6-5.0) L 09/12/16 05:57 Chloride 105 mmol/L (98-107) 09/12/16 05:57 Carbon Dioxide 24 mmol/L (22-30) 09/12/16 05:57 Anion Gap 15 (10-20) 09/12/16 05:57 BUN 10 mg/dl (9-20) 09/12/16 05:57 Creatinine 1.0 mg/dL (0.8-1.5) 09/12/16 05:57 Est GFR ( Amer) > 60 09/12/16 05:57 Est GFR (Non-Af Amer) > 60 09/12/16 05:57 Random Glucose 121 mg/dL (75-110) H 09/12/16 05:57 Lactic Acid 1.6 MMOL/L (0.7-2.1) 09/11/16 01:15 Calcium 7.8 mg/dL (8.4-10.2) L 09/12/16 05:57 Total Bilirubin 0.7 mg/dl (0.2-1.3) 09/12/16 05:57 AST 35 U/L (17-59) 09/12/16 05:57 ALT 31 U/L (21-72) 09/12/16 05:57 Alkaline Phosphatase 57 U/L (38-126) 09/12/16 05:57 Total Protein 6.0 G/DL (6.3-8.2) L 09/12/16 05:57 Albumin 3.1 g/dL (3.5-5.0) L D 09/12/16 05:57 Globulin 2.9 gm/dL (2.2-3.9) 09/12/16 05:57 Albumin/Globulin Ratio 1.1 (1.0-2.1) 09/12/16 05:57 Urine Color Straw (YELLOW) 09/11/16 01:15 Urine Clarity Clear (Clear) 09/11/16 01:15 Urine pH 6.0 (5.0-8.0) 09/11/16 01:15 Ur Specific [place] 1.012 (1.003-1.030) 09/11/16 01:15 Urine Protein Negative mg/dL (NEGATIVE) 09/11/16 01:15 Urine Glucose (UA) Neg mg/dL (Normal) 09/11/16 01:15 Urine Ketones Negative mg/dL (NEGATIVE) 09/11/16 01:15 Urine Blood Moderate (NEGATIVE) 09/11/16 01:15 Urine Nitrate Negative (NEGATIVE) 09/11/16 01:15 Urine Bilirubin Negative (NEGATIVE) 09/11/16 01:15 Urine Urobilinogen 0.2-1.0 mg/dL (0.2-1.0) 09/11/16 01:15 Ur Leukocyte Esterase Neg [place]/uL (Negative) 09/11/16 01:15 Urine RBC (Auto) 7 /hpf (0-3) H 09/11/16 01:15 Urine Microscopic WBC 1 /hpf (0-5) 09/11/16 01:15 Discharge Exam - Head Exam Head Exam: ATRAUMATIC, NORMAL INSPECTION, NORMOCEPHALIC Discharge Plan - Discharge Medications Prescriptions: Amoxicillin/Clavulanate [Augmentin 875 MG-125 MG] 1 tab PO BID #28 tab Phenazopyridine [Pyridium] 200 mg PO TID #6 tab Ketorolac Tromethamine [Toradol] 10 mg PO Q6 PRN #20 tab PRN Reason: abd pain - Follow Up Plan Condition: FAIR Disposition: HOME/ ROUTINE Additional Instructions: pts urine cleared w/ fluids. kdur given no complaints. f/u rmg wednesday, rted prn, meds pe rmed rec final dx-r kidney stone w/ hydronephrosis, pvc f/u speicialist as directed
--- NOTE | 2016-09-12 19:13 | CARD ---
APPROVED REPORT EXAM: Two-dimensional and M-mode echocardiogram with Doppler and color Doppler. Other Information Quality : GoodRhythm : NSRPVC's INDICATION Abnormal EKG/Arrhythmia 2D DIMENSIONS IVSd0.72 (0.7-1.1cm)LVDd5.00 (3.9-5.9cm) LVOT Diameter2.81 (1.8-2.4cm)PWd1.11 (0.7-1.1cm) IVSs1.39 (0.8-1.2cm)LVDs3.03 (2.5-4.0cm) FS (%) 39.4 %PWs1.32 (0.8-1.2cm) LVEF (%)55.0 (>50%) M-Mode DIMENSIONS Left Atrium (MM)3.71 (2.5-4.0cm)IVSd0.62 (0.7-1.1cm) Aortic Root3.26 (2.2-3.7cm)LVDd5.24 (4.0-5.6cm) Aortic Cusp Exc.2.26 (1.5-2.0cm)PWd0.82 (0.7-1.1cm) IVSs0.85 cmFS (%) 26 % LVDs3.85 (2.0-3.8cm)PWs1.29 cm Mitral Valve E/A ratio0.0 TDI E/Lateral E'0.0E/Medial E'0.0 Pulmonary Valve PV Peak Tbsnrish137.0cm/s LEFT VENTRICLE The left ventricle is normal size. There is normal left ventricular wall thickness. The left ventricular function is normal. The left ventricular ejection fraction is within the normal range. There is normal LV segmental wall motion. The left ventricular diastolic function is normal. No left ventricle thrombus noted on this study. RIGHT VENTRICLE The right ventricle is normal size. There is normal right ventricular wall thickness. The right ventricular systolic function is normal. ATRIA The left atrium size is normal. The right atrium size is normal. AORTIC VALVE The aortic valve is not well visualized. No aortic regurgitation is present. There is no aortic valvular stenosis. MITRAL VALVE The mitral valve is normal in structure and function. There is no mitral valve stenosis. There is no mitral valve regurgitation noted. TRICUSPID VALVE The tricuspid valve is normal in structure and function. There is no tricuspid valve regurgitation noted. PULMONIC VALVE The pulmonary valve is normal in structure and function. There is no pulmonic valvular regurgitation. GREAT VESSELS The aortic root is normal in size. The IVC was not visualized. PERICARDIAL EFFUSION The pericardium appears normal. <Conclusion> There is normal left ventricular wall thickness. There is normal left ventricular wall thickness. The left ventricular function is normal. The left ventricular ejection fraction is within the normal range. There is normal LV segmental wall motion. The left ventricular diastolic function is normal.
--- NOTE | 2016-09-14 12:13 | CARD ---
APPROVED REPORT EKG Measurement Heart [id number] <Conclusion> Sinus tachycardia with occasional premature ventricular complexes Nonspecific T wave abnormality Abnormal ECG
== END 2016-09-12 14:30 | disposition home or self-care (01) | DRG 661 ==
LOC: H.ER 00:09 → H.ERHOLD 01:29 → H.MEDSURG1 03:12 → H.TEL 16:26
PROVIDERS: ADMIT Family Medicine; ATTEND Family Medicine
PROC: 0TJB8ZZ Inspection of Bladder, Via Natural or Artificial Opening Endoscopic (ICD-10-PCS; 2016-09-11)
PROC: 0T768ZZ Dilation of Right Ureter, Via Natural or Artificial Opening Endoscopic (ICD-10-PCS; principal; 2016-09-11 13:30)
DX: N20.1 Calculus of ureter (principal); N20.0 Calculus of kidney; N40.0 Benign prostatic hyperplasia without lower urinary tract symptoms